=== PATIENT | male | born 1935 | race Caucasian/White ===

== ENCOUNTER 2017-10-29 13:48 | Inpatient (IN) | payer OTHER, MEDICARE ==
[~2017-10-29] VITALS: Ht 180.3 cm; Wt 78.2 kg
[2017-10-29 13:52] VITALS: Ht 180.3 cm; Wt 78.2 kg
[2017-10-29 14:48] LABS: BASOPHIL % 0.5 % (0-2); PLATELET COUNT 189 x10^3mcL (130-400)
[2017-10-29 14:49] LABS: RED CELL DISTRIBUTION WIDTH 14.7 % (11.5-14.5)
[2017-10-29 15:20] LABS: ALKALINE PHOSPHATASE 68 U/L (46-116); ALT/SGPT 15 U/L (16-63); AST/SGOT 12 U/L (15-37); BILIRUBIN TOTAL 0.34 mg/dL (0.20-1.00); CALCIUM 8.5 mg/dL (8.5-10.1); CARBON DIOXIDE 27.5 mmol/L (21-32); CREATININE SERUM 1.7 mg/dL (0.7-1.3); GLUCOSE SERUM 168 mg/dL (74-106); TOTAL PROTEIN, SERUM 6.3 g/dL (6.4-8.2)
[2017-10-29 15:22] LABS: CHLORIDE SERUM 109 mmol/L (98-107); POTASSIUM SERUM 4.2 mmol/L (3.5-5.1); SODIUM SERUM 145 mmol/L (136-145)
[2017-10-29 16:04] LABS: CK-MB 1.4 ng/mL (0-3.6)
[2017-10-29] MEDS ORDERED: LAXATIVE5 M1 PO (16:31)
[2017-10-29] MEDS ORDERED: MASON NATURAL1000 IU PO (16:31)
[2017-10-29] MEDS ORDERED: NAMENDA10 M2 PO (16:31)
[2017-10-29] MEDS ORDERED: ALENDRONATE SOD70 M2 (16:31)
[2017-10-29] MEDS ORDERED: MP (16:32)
[2017-10-29] MEDS ORDERED: PERCOCET1 TAB PO (16:32)
[2017-10-29 17:23] LABS: T3 TOTAL 0.5 ng/mL
[2017-10-29 17:54] LABS: CHOLESTEROL/HDL RATIO 2.8
[2017-10-29 18:00] LABS: FREE T4 1.25 ng/dL (0.76-1.46); FREE THYROXINE INDEX 3.7 ug/dL (1.4-4.5)
[2017-10-29 18:53] VITALS: BP 136/42
[2017-10-29 21:30] VITALS: BP 144/35
[2017-10-29 21:46] VITALS: BP 144/35
[2017-10-30 05:57] VITALS: BP 123/33
[2017-10-30 06:34] LABS: BASOPHIL % 0.4 % (0-2); PLATELET COUNT 160 x10^3mcL (130-400); RED CELL DISTRIBUTION WIDTH 14.2 % (11.5-14.5)
[2017-10-30 06:54] LABS: CALCIUM 8.3 mg/dL (8.5-10.1); CARBON DIOXIDE 27.8 mmol/L (21-32); CHLORIDE SERUM 112 mmol/L (98-107); CREATININE SERUM 1.4 mg/dL (0.7-1.3); GLUCOSE SERUM 76 mg/dL (74-106); MAGNESIUM 2.5 mg/dL (1.8-2.4); PHOSPHOROUS 3.4 mg/dL (2.5-4.9); POTASSIUM SERUM 3.9 mmol/L (3.5-5.1); SODIUM SERUM 147 mmol/L (136-145)
[2017-10-30 09:45] VITALS: BP 117/42
[2017-10-30 09:48] VITALS: BP 111/70
[2017-10-30 12:40] VITALS: BP 130/35
[2017-10-30 17:37] VITALS: BP 138/99
[2017-10-30 21:11] VITALS: BP 132/46
[2017-10-31 05:42] VITALS: BP 129/71
[2017-10-31 07:15] LABS: CALCIUM 8.2 mg/dL (8.5-10.1); CHLORIDE SERUM 111 mmol/L (98-107); CREATININE SERUM 1.6 mg/dL (0.7-1.3); GLUCOSE SERUM 93 mg/dL (74-106); POTASSIUM SERUM 4.2 mmol/L (3.5-5.1); SODIUM SERUM 143 mmol/L (136-145)
[2017-10-31 07:42] LABS: BASOPHIL % 0.3 % (0-2); PLATELET COUNT 176 x10^3mcL (130-400); RED CELL DISTRIBUTION WIDTH 14.5 % (11.5-14.5)
[2017-10-31 08:00] VITALS: BP 125/86
[2017-10-31 14:19] VITALS: BP 156/85
[2017-10-31 16:03] VITALS: BP 156/85
[2017-10-31 17:36] VITALS: BP 154/59
[2017-10-31] MEDS ORDERED: PROS5 PO (18:30)
[2017-10-31] MEDS ORDERED: LEVSIN-SL0.125 MG PO (18:30)
[2017-10-31] MEDS ORDERED: DUL10S RC (18:30)
[2017-10-31] MEDS ORDERED: ELIQUIS2.5 MG PO (18:30)
[2017-10-31] MEDS ORDERED: COM5 PO (18:30)
[2017-10-31] MEDS ORDERED: COL100 PO (18:30)
[2017-10-31] MEDS ORDERED: IPRATROPIUM BROM3 M2 HHN ×2 (18:30)
[2017-10-31] MEDS ORDERED: HAL5 PO (18:30)
[2017-10-31] MEDS ORDERED: FLO4 PO (18:30)
== END 2017-10-31 18:22 | DRG 640 ==
LOC: ED 13:48 → DU 16:29
PROVIDERS: Emergency Medicine; Family Medicine
DX: E86.0 Dehydration (principal); N17.0 Acute kidney failure with tubular necrosis; J20.9 Acute bronchitis, unspecified; R13.10 Dysphagia, unspecified; R00.1 Bradycardia, unspecified; I44.1 Atrioventricular block, second degree; I48.91 Unspecified atrial fibrillation; G30.9 Alzheimer's disease, unspecified; F02.80 Dementia in other diseases classified elsewhere, unspecified severity, without behavioral disturbance, psychotic disturbance, mood disturbance, and anxiety; Z68.25 Body mass index [BMI] 25.0-25.9, adult; Z99.3 Dependence on wheelchair; Z66 Do not resuscitate
CPT/HCPCS: 83880; 84439; 87804; 92610-GN; J0461; J1956; J3490; J7030; J7620; Q0092